=== PATIENT | male | born 2005 | race Caucasian/White ===

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

== ENCOUNTER 2023-04-07 05:15 | Emergency (ER) | payer OTHER ==
[~2023-04-07] VITALS: Ht 188 cm; Wt 94.6 kg
[~2023-04-07 05:15] MED LIST changes: +ONDA4TAB6 PO
[2023-04-07] MEDS ORDERED: ACETAMINOPHEN 500 MG TAB PO ONE (05:30)
[2023-04-07 07:05] VITALS: BP 138/64; TEMP 97.7; O2SAT 94
== END 2023-04-07 07:05 | disposition home or self-care (01) ==
LOC: M ED 05:15
DX: M79.10 Myalgia, unspecified site (principal); J45.909 Unspecified asthma, uncomplicated

== ENCOUNTER 2023-07-11 15:55 | Inpatient (IN) | payer OTHER ==
[~2023-07-11] VITALS: Ht 188 cm; Wt 99.6 kg
[~2023-07-11 15:55] MED LIST changes: +AMOX875T2 PO; +IBUP200C25 PO
[2023-07-11 16:53] LABS: HEMATOCRIT 43.7 % (42.0-52.0); HEMOGLOBIN 15.1 g/dl (13.5-17.5); MEAN CORPUSCULAR HEMOGLOBIN 31.4 pg (27.0-33.0); MEAN CORPUSCULAR HGB CONC 34.6 g/dl (32.0-36.5); MEAN CORPUSCULAR VOLUME 90.9 fl (80.0-96.0); PLATELET COUNT, AUTOMATED 234 10^3/uL (150-450); RED BLOOD COUNT 4.81 10^6/uL (4.30-6.10); WHITE BLOOD COUNT 4.6 10^3/uL (4.0-10.0)
[2023-07-11 17:14] LABS: ETHYL ALCOHOL (ETHANOL) < 0.003 % (0.000-0.010)
[2023-07-11 17:15] LABS: SALICYLATE LEVEL < 3.0 MG/DL (<30)
[2023-07-11 17:16] LABS: ACETAMINOPHEN LEVEL < 2.0 UG/ML (10.0-20.0); ALBUMIN 2.5 G/DL (3.2-5.2); ALKALINE PHOSPHATASE 111 U/L (46-116); ALT/SGPT 21 U/L (7.0-40); AST/SGOT 21 U/L (<34); BILIRUBIN,DIRECT 0.4 MG/DL (<0.4); BLOOD UREA NITROGEN 17 MG/DL (9-23); CALCIUM LEVEL 9.5 MG/DL (8.5-10.1); CARBON DIOXIDE LEVEL 28 MMOL/L (20-31); CHLORIDE LEVEL 105 MMOL/L (98-107); CREATININE FOR GFR 1.01 MG/DL (0.70-1.30); GLUCOSE, FASTING 96 MG/DL (60-100); POTASSIUM SERUM 3.9 MMOL/L (3.5-5.1); SODIUM LEVEL 139 MMOL/L (136-145); TOTAL PROTEIN 7.4 G/DL (5.7-8.2)
[2023-07-11 17:18] LABS: THYROID STIMULATING HORMONE 2.161 uIU/ML (0.48-4.17)
[2023-07-11 19:15] LABS: AMPHETAMINES LEVEL URINE NEGATIVE (NEGATIVE); BARBITURATES URINE NEGATIVE (NEGATIVE); BENZODIAZEPINES URINE NEGATIVE (NEGATIVE); COCAINE METABOLITE URINE NEGATIVE (NEGATIVE); METHADONE URINE NEGATIVE (NEGATIVE); OPIATES URINE NEGATIVE (NEGATIVE)
[2023-07-11 19:16] LABS: CANNABINOIDS URINE NEGATIVE (NEGATIVE); PHENCYCLIDINE URINE NEGATIVE (NEGATIVE)
[2023-07-11] MEDS ORDERED: HOME MED LIST COMPLETE! XX SCH (20:10)
[2023-07-11 20:24] LABS: GC DNA AMPLIFICATION NEGATIVE (NEGATIVE)
[2023-07-12] MEDS ORDERED: MOM 30ML SUSPENSION UDC PO PRN (22:10)
[2023-07-12] MEDS ORDERED: IBUPROFEN 400MG TAB PO PRN (22:10)
[2023-07-12] MEDS ORDERED: ACETAMINOPHEN TAB 650MG DOSE (2X325MG) PO PRN (22:10)
[2023-07-12] MEDS ORDERED: diphenhydrAMINE 25MG CAP PO PRN (22:10)
[2023-07-12] MEDS ORDERED: MAALOX 30 ML SUSP *UDC PO PRN (22:10)
[2023-07-12] MEDS ORDERED: traZODone 50 MG TAB PO PRN (22:10)
[2023-07-12 23:30] VITALS: BP 129/73; TEMP 97.2; O2SAT 99
[2023-07-13 06:08] VITALS: BP 127/70; TEMP 98.4; O2SAT 97
[2023-07-13] MEDS: CitaloPRAM (CeleXA) 20 MG TAB PO SCH (15:13)
[2023-07-13 17:56] VITALS: BP 130/82; TEMP 98.4; O2SAT 96
[2023-07-14 06:57] VITALS: BP 118/69; TEMP 98; O2SAT 96
[2023-07-14] MEDS: CitaloPRAM (CeleXA) 20 MG TAB PO SCH (08:28)
[2023-07-14 16:08] VITALS: BP 137/76; TEMP 98.4; O2SAT 98
[2023-07-15 06:13] VITALS: BP 145/70; TEMP 99.2; O2SAT 99
[2023-07-15] MEDS: CitaloPRAM (CeleXA) 20 MG TAB PO SCH (08:11)
[2023-07-15 18:14] VITALS: BP 134/81; TEMP 98.4; O2SAT 98
[2023-07-16 06:48] VITALS: BP 123/77; TEMP 98; O2SAT 99
[2023-07-16] MEDS: CitaloPRAM (CeleXA) 20 MG TAB PO SCH (08:31)
[2023-07-16] MEDS ORDERED: TRAZ-252 PO (09:18)
[2023-07-16] MEDS ORDERED: CELE20TA PO (09:18)
== END 2023-07-16 10:57 | disposition home or self-care (01) | DRG 885 ==
LOC: M ED 15:55 → M ED INP 07-12 22:10 → M PSY 07-12 22:41
PROVIDERS: ADMIT Student in an Organized Health Care Education/Training Program; ATTEND Student in an Organized Health Care Education/Training Program
DX: F32.89 Other specified depressive episodes (principal); R45.851 Suicidal ideations; F43.21 Adjustment disorder with depressed mood; Z63.0 Problems in relationship with spouse or partner; G47.00 Insomnia, unspecified; Z90.49 Acquired absence of other specified parts of digestive tract; Z20.822 Contact with and (suspected) exposure to COVID-19